=== PATIENT | male | born 1970 | race Hispanic/Latino ===

== ENCOUNTER 2016-06-28 11:03 | Emergency (ER) | payer OTHER ==
[~2016-06-28] VITALS: Ht 170.2 cm; Wt 74.4 kg
[~2016-06-28 11:03] MED LIST: BENTYL10 MG PO; ZOFRAN4 M1 SL
[2016-06-28] MEDS ORDERED: NEXIUM40 M1 PO (12:00)
[2016-06-28] MEDS ORDERED: MONTELUKAST SOD10 M1 PO (12:00)
[2016-06-28] MEDS ORDERED: LORATADINE10 M1 PO (12:00)
--- NOTE | 2016-06-28 12:02 | ED NECK/BACK PAIN COMPLAINT ---
History of Present Illness General Chief Complaint: Neck/Upper Back Pain/Injury Stated Complaint: R FLANK PAIN Source: patient Exam Limitations: no limitations Vital Signs & Intake/Output Vital Signs & Intake/Output Vital Signs Date Time Temp Pulse Resp B/P Pulse O2 O2 Flow FiO2 Ox Delivery Rate 06/28 1339 68 18 116/74 98 Room Air 06/28 1112 98.3 74 20 106/65 98 Room Air Allergies Coded Allergies: NO KNOWN ALLERGIES (09/30/12) Reconcile Medications Cyclobenzaprine HCl 10 MG TABLET 1 TAB PO QPM BACK SPASMS Esomeprazole (Nexium) 40 MG CAPSULE.DR 1 CAP PO DAILY GI (Reported) Loratadine 10 MG TABLET 1 TAB PO DAILY ALLERGIES (Reported) Meloxicam (Mobic) 15 MG TABLET 1 TAB PO DAILY pain Montelukast Sodium 10 MG TABLET 1 TAB PO DAILY ALLERGIES (Reported) Triage Note: PT TO ED C/O R FLANK PAIN X 3 DAYS. C/O BURNING AND URGENCY WITH URINATION. Triage Nurses Notes Reviewed? yes Onset: Abrupt Duration: week(s): (2), constant, continues in ED Timing: recent history HPI: 45-year-old male comes into emergency room with complaints of right upper back pain has been going on for the past week. Patient reports she recently started lifting weights over last couple weeks again. Pain is worse with any type of range of motion. Denies any abdominal pain. Denies any chest pain shortness of breath. Patient also reports some burning with urination and discharge from his penis that is white. Denies any other associated symptoms. (GUSTAVO GILES) Past History Travel History Traveled to [place] past 21 day No Medical History Any Pertinent Medical History? 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 No (GUSTAVO GILES) Review of Systems Review of Systems Constitutional: Reports: no symptoms. Eyes: Reports: no symptoms. Ears, Nose, Throat, Mouth: Reports: no symptoms. Respiratory: Reports: no symptoms. Cardiovascular: Reports: no symptoms. Gastrointestinal/Abdominal: Reports: no symptoms. Musculoskeletal: Reports: see HPI. Skin: Reports: no symptoms. Neurological/Psychological: Reports: no symptoms. All Other Systems: Reviewed and Negative (GUSTAVO GILES) Physical Exam Physical Exam General Appearance: well developed/nourished Head: atraumatic Eyes: Bilateral: normal appearance. Ears, Nose, Throat, Mouth: hearing grossly normal, moist mucous membrane Neck: normal inspection Respiratory: normal breath sounds, no respiratory distress Cardiovascular: regular rate/rhythm Back: normal inspection Extremities: normal range of motion Neurologic/Psych: awake, alert, oriented x 3, normal mood/affect Skin: intact, normal color, warm/dry Diagram Body: 1) Tenderness with palpation (GUSTAVO GILES) Progress Differential Diagnosis: AAA, aortic dissection, C spine injury, carotid dissection, cauda equina syn, herniated disc, myofascial strain, pyelo/UTI, sciatica, spinal cord inj, thoracic outlet syn, T/L spine injury, ureterolithiasis, rib fracture, shingles, kidney stone, Plan of Care: Orders Procedure Date/time Status Add-on Test (ER Only) 06/28 1220 Active CHLAMYDIA-GC DNA PROBE 06/28 1206 Active URINALYSIS 06/28 1203 Complete Laboratory Tests 06/28/16 1206: Urine Color YEL, Urine Clarity CLEAR, Urine pH 6.0, Ur Specific [place] 1.020, Urine Protein NEG, Urine Ketones NEG, Urine Nitrite NEG, Urine Bilirubin NEG, Urine Urobilinogen 0.2, Ur Leukocyte Esterase NEG, Ur Microscopic EXAM NOT REQUIRED, Urine Hemoglobin NEG, Urine Glucose NEG Microbiology 06/28 1206 URINE ROUT: GC DNA Probe - RECD 06/28 120 URINE ROUT: Chlamydia DNA Probe ([facility]IVAN) - RECD Diagnostic Imaging: Viewed by Me: Radiology Read. Discussed w/RAD: Radiology Read. Radiology Impression: EXAM TYPE: RAD - XRY-RIBS UNILATERAL-RIGHT EXAMINATION: XR RIBS, RIGHT CLINICAL INFORMATION: Pain COMPARISON: Chest x-ray dated 05/03/2016 TECHNIQUE: 3 views of the right ribs with PA chest were obtained. FINDINGS: Lungs are clear. No consolidation, pneumothorax, or pleural effusion. The cardiomediastinal silhouette and pulmonary vasculature are normal. Osseous structures are unremarkable. Ribs are intact. No fractures are identified. IMPRESSION: No acute or suspicious osseous abnormality. No acute pulmonary disease. Comments: 06/28/2016 1:22:22 PM Patient clinically looks well. Nontoxic-appearing. In no apparent distress. Patient's pain in the back is reproducible and worse with range of motion making it more consistent with musculoskeletal pain. It is higher up than CVA tenderness. Patient also having some urethral discharge. No suspicion for kidney stone at this time. Patient clinically looks well. Patient treated prophylactically for gonorrhea and chlamydia. Gonorrhea and Chlamydia sent. (CLAUS SNOW,GUSTAVO) Departure Departure Disposition: HOME OR SELF CARE Condition: Stable Clinical Impression Primary Impression: Strain of latissimus dorsi muscle Secondary Impressions: Urethral discharge in male Referrals: REY ASHLEY,LANETTE (PCP/Family) Additional Instructions: Take Shahida and Flexeril as prescribed. Follow-up with your primary care doctor. Return if any concerns worsening symptoms. Please go over all results of today's visit with your primary care doctor. Contact your primary care doctor to let them know you were here in the emergency room. There may be nonspecific findings which may not be related to your visit today here in the emergency room but may require further evaluation and chronic monitoring by your primary care doctor. If you had a laceration today the chance of foreign body always remains. You should follow-up with your primary care doctor for recheck in 3-5 days for a wound check. If you had an x-ray done there is a chance that a fracture could have been missed on initial read and you should follow-up with your primary care doctor for repeat x-rays if symptoms persist. If your blood pressure was elevated here in the emergency room please have rechecked by her primary care doctor within the next 48 hours by your primary care doctor. If you were prescribed a narcotic here in the emergency room or any type of controlled substances you're not allowed to drive while taking this medication or operate any type of heavy machinery. Narcotics can make you feel lightheaded dizziness nausea and can cause constipation. You may need to burr picker a stool softener. Thank you for choosing [facility] emergency room. Please return to the emergency room immediately if you have any other concerns worsening of symptoms. Departure Forms: Customer Survey General Discharge Information Prescriptions: Current Visit Scripts Meloxicam (Mobic) 1 TAB PO DAILY #15 TAB Cyclobenzaprine HCl 1 TAB PO QPM #20 TAB (GUSTAVO GILES) PA/MEDICAL CENTER REPRESENTATIVE Co-Sign Statement Statement: ED Attending supervision documentation- [] I saw and evaluated the patient. I have also reviewed all the pertinent lab results and diagnostic results. I agree with the findings and the plan of care as documented in the PA's/MEDICAL CENTER REPRESENTATIVE's documentation. [x] I have reviewed the ED Record and agree with the PA's/MEDICAL CENTER REPRESENTATIVE's documentation. [] Additions or exceptions (if any) to the PAs/MEDICAL CENTER REPRESENTATIVE's note and plan are summarized below: [] (FCO MONTOYA DO)
--- NOTE | 2016-06-28 13:04 | RADIOLOGY REPORT ---
EXAMINATION: XR RIBS, RIGHT CLINICAL INFORMATION: Pain COMPARISON: Chest x-ray dated 05/03/2016 TECHNIQUE: 3 views of the right ribs with PA chest were obtained. FINDINGS: Lungs are clear. No consolidation, pneumothorax, or pleural effusion. The cardiomediastinal silhouette and pulmonary vasculature are normal. Osseous structures are unremarkable. Ribs are intact. No fractures are identified. IMPRESSION: No acute or suspicious osseous abnormality. No acute pulmonary disease.
[2016-06-28] MEDS ORDERED: MOBIC15 M1 PO (13:09)
[2016-06-28] MEDS ORDERED: CYCLOBENZAPRINE10 M1 PO (13:09)
[2016-06-28 13:39] VITALS: BP 116/74
== END 2016-06-28 13:53 ==
LOC: ERH 11:03
DX: S29.012A Strain of muscle and tendon of back wall of thorax, initial encounter (principal); R36.9 Urethral discharge, unspecified; X50.0XXA Overexertion from strenuous movement or load, initial encounter; Y93.B3 Activity, free weights
CPT/HCPCS: 71100-RT; 81003; 87491; 87591; 96372; J0696

== ENCOUNTER 2017-11-13 15:56 | Emergency (ER) | payer OTHER ==
[~2017-11-13] VITALS: Ht 170.2 cm; Wt 71.2 kg
[~2017-11-13 15:56] MED LIST changes: +CYCLOBENZAPRINE10 M1 PO; +DOLOPHINE HCL10 M1 PO; +LORATADINE10 M1 PO; +MOBIC15 M1 PO; +MONTELUKAST SOD10 M1 PO; +NEXIUM40 M1 PO; +ZOFRAN ODT4 M1 SL
[2017-11-13 16:14] VITALS: BP 122/69
[2017-11-13 16:41] LABS: ABSOLUTE BASOPHIL COUNT 0 /CUMM (0.0-0.2); ABSOLUTE EOSINOPHIL COUNT 0 /CUMM (0.0-0.7); ABSOLUTE LYMPH COUNT 1.2 /CUMM (1.2-3.4); ABSOLUTE MONOCYTE COUNT 0.9 /CUMM (0.10-0.60); BASOPHIL % 0.2 % (0.0-2.0); EOSINOPHIL % 0.3 % (0-5); GRANULOCYTE % 84.8 % (42.2-75.2); HEMATOCRIT 40.8 % (42-52); MEAN CORPUSCULAR HGB 29.4 PG (27.0-31.0); MEAN CORPUSCULAR HGB CONC 33.2 G/DL (33.0-37.0); MEAN CORPUSCULAR VOLUME 88.5 FL (80.0-94.0); MEAN PLATELET VOLUME 7.8 FL (7.4-10.4); PLATELET COUNT 224 /CUMM (130-400); RBC DISTRIBUTION WIDTH 12.6 % (11.5-14.5); RED BLOOD CELL CT 4.61 /CUMM (4.70-6.10)
[2017-11-13 17:06] LABS: WHITE BLOOD CELL COUNT 14.1 /CUMM (4.8-10.8)
--- NOTE | 2017-11-13 17:10 | CT SCAN REPORT ---
EXAMINATION: CT ABDOMEN AND PELVIS WITHOUT CONTRAST CLINICAL INFORMATION: Low back pain radiating to the right groin. COMPARISON: Ultrasound dated 12/16/2015 TECHNIQUE: Multidetector volumetric imaging was performed from the superior aspect of the liver through the pubic symphysis. Sagittal and coronal reformatted images were obtained on the technologist's workstation. DLP: 267.7 mGy-cm FINDINGS: LUNG BASES: The visualized lung bases are unremarkable. LIVER, GALLBLADDER, AND BILIARY TREE: The liver is normal in size, shape, and attenuation. No focal hepatic lesion or biliary ductal dilatation is present. The gallbladder is unremarkable with no evidence of radiopaque gallstones, gallbladder wall thickening, or obvious pericholecystic inflammatory changes. PANCREAS: Unremarkable. SPLEEN: Unremarkable. ADRENAL GLANDS: Unremarkable. KIDNEYS AND URETERS: The kidneys are normal in size, shape, and attenuation. No hydronephrosis, hydroureter, or calculi seen. No perinephric stranding. BLADDER: Unremarkable. GASTROINTESTINAL TRACT: Stomach, small bowel, and colon are normal in caliber. No bowel wall thickening or surrounding inflammatory changes. Appendix is normal. No intraperitoneal free fluid or free air. Moderate to large stool volume is present throughout the colon. ABDOMINAL WALL: No significant hernia is appreciated. LYMPH NODES: Normal. VASCULAR: Unremarkable. PELVIC VISCERA: The prostate and seminal vesicles are unremarkable. OSSEOUS STRUCTURES: Mild degenerative disc disease in the lumbar spine is characterized by endplate osteophytes and mild loss of intervertebral disc height. There are bilateral chronic L5 pars defects. Ankylosis is noted at the sacroiliac joints bilaterally. 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 IMPRESSION: 1. No acute intra-abdominal or intrapelvic abnormalities. No nephrolithiasis or findings of obstructive uropathy. 2. Chronic bilateral L5 pars defects. 3. Mild multilevel degenerative disc disease in lumbar spine
[2017-11-13] MEDS ORDERED: METHADONE10 MG/5 M2 PO (17:26)
--- NOTE | 2017-11-13 17:35 | ED GI/GU/ABDOMINAL COMPLAINT ---
History of Present Illness General Chief Complaint: General Adult Stated Complaint: "I DONT FEEL WELL", MULITPLE COMPLIANTS Source: patient, family Exam Limitations: no limitations Vital Signs & Intake/Output Vital Signs & Intake/Output ED Intake and Output 11/14 0000 11/13 1200 Intake Total 0 Output Total Balance 0 Intake, Oral 0 Patient 157 lb Weight Weight Reported by Patient Measurement Method Allergies Coded Allergies: NO KNOWN ALLERGIES (09/30/12) Reconcile Medications Methadone HCl 10 MG/5 ML SOLUTION 80 MG PO DAILY MENTAL HEALTH (Reported) Naproxen (Naprosyn) 500 MG TABLET 1 TAB PO BID PRN PAIN/FEVER Triage Note: 47 Y/O MALE C/O FEVERS SINCE THIS AM AND LOWER BACK PAIN (ONSET THIS MORNING). PT DENIES ABDOMINAL PAIN BUT STATES SOME PAIN IN R LOWER GROIN. PT REPORTS "FEELING A KNOT" IN R GROIN, DENIES NOTING REDNESS. FAMILY MEMBER GAVE 1000MG TYLENOL AT 1345 WITH SOME RELIEF, 99.2 IN TRIAGE. PT ALSO REPORTS "BURNING" WITH URINATION. EVALD BY GWENDOLYN REID IN TRIAGE Triage Nurses Notes Reviewed? yes Onset: Abrupt Duration: day(s): (1), constant, continues in ED Timing: single episode today Quality/Severity: cramping, dullness Severity Numbers: 4 Location: generalized abdomen Radiation: back, groin Activities at Onset: none Prior Abdominal Problems: none No Modifying Factors: none HPI: 47-year-old male history of migraine headaches, substance abuse, on methadone maintenance presents for evaluation of fatigue, weakness, body aches, back pain, subjective fever and abdominal pain. Patient reports symptoms started today when he woke up and been persistent. The pain is located diffusely in his abdomen described as cramping and dullness. He reports associated decreased appetite and nausea but no vomiting no diarrhea no chest pain no shortness of breath. He has not taken a measured temperature. No rashes. He does report some intermittent burning with urination but no penile discharge. No frequency or urgency. (Gabriel SNOW,Shawn) Past History Travel History Traveled to [place] past 21 day No Medical History Any Pertinent Medical History? 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 No (Shawn Verdugo) Review of Systems Review of Systems Constitutional: Reports: see HPI, malaise, weakness. EENTM: Reports: no symptoms. Respiratory: Reports: no symptoms. Cardiovascular: Reports: no symptoms. GI: Reports: see HPI, abdominal pain. Genitourinary: Reports: see HPI, dysuria. Musculoskeletal: Reports: see HPI, back pain, muscle pain, muscle stiffness. Skin: Reports: no symptoms. Neurological/Psychological: Reports: no symptoms. Hematologic/Endocrine: Reports: no symptoms. Immunologic/Allergic: Reports: no symptoms. All Other Systems: Reviewed and Negative (Shawn Verdugo) Physical Exam Physical Exam General Appearance: well developed/nourished, no apparent distress, alert, awake Head: atraumatic, normal appearance Eyes: Bilateral: normal appearance, PERRL, EOMI. Ears, Nose, Throat, Mouth: hearing grossly normal, moist mucous membrane Neck: normal inspection, supple, full range of motion Respiratory: normal breath sounds, chest non-tender, no respiratory distress, lungs clear Cardiovascular: regular rate/rhythm, normal peripheral pulses Peripheral Pulses: 2+ radial (R), 2+ radial (L) Gastrointestinal: soft, tenderness (MILD DIFFUSE ) Male Genitals: normal genitalia Back: normal inspection, normal range of motion, no vertebral tenderness, LUMBAR PARASPINOUS M\\MUSCLE TEDNERENSS BILATERALY. NO MIDLINE PAIN NO STEP OFFS OR DEFORMITIES. Extremities: normal range of motion Neurologic/Psych: no motor/sensory deficits, awake, alert, oriented x 3, normal gait Skin: intact, normal color, warm/dry Core Measures ACS in differential dx? No Sepsis Present: No Sepsis Focused Exam Completed? No (Shawn Verdugo) Progress Differential Diagnosis: appendicitis, bowel obstruction, cholecystitis, diverticulitis, gastritis, prostatitis, pyelonephritis, STD, ureterolithiasis, urinary retention, urethritis, UTI/pyelo, viral syndrome, dehydration Plan of Care: Orders Procedure Date/time Status Add-on Test (ER Only) 11/13 1736 Active CULTURE,URINE 11/13 1649 Active CHLAMYDIA-GC DNA PROBE 11/13 1649 Active Patient is here with multiple complaints including subjective fever malaise weakness fatigue abdominal pain and back pain. On exam his vital signs are stable. He has mild diffuse abdominal tenderness and lumbar paraspinal tenderness. Labs CT scan ordered urinalysis, gonorrhea chlamydia ordered. Work showing a white blood cell count of 14,000 otherwise no abnormal findings. Urine is not showing signs of infection. Gonorrhea chlamydia testing is pending. CT scan of the abdomen and pelvis shows some degenerative changes of the lumbar spine without acute findings. Patient was medicated with fluids and Toradol and is feeling much better. Discussed with patient about empiric treatment for gonorrhea chlamydia as he is reporting dysuria. Patient is sexually active with his and no other partners no history of STDs. He wants to hold off on it. Treatment for now until results are back. Advised patient to rest drink plenty of fluids continue Tylenol and ibuprofen for body aches and subjective fever. Follow-up with primary care doctor the next few days. Discussed return precautions in detail avoid sex until infection status is known. Patient agrees the plan Diagnostic Imaging: Viewed by Me: CT Scan. Discussed w/RAD: CT Scan. Radiology Impression: PATIENT: EMERITA GRIFFIN PRESENT AGE: 47 PATIENT ACCOUNT NO: [id number] : 68 LOCATION: [facility] ([place]) ORDERING PHYSICIAN: Shawn SNOW SERVICE DATE: 11/13/17 EXAM TYPE: CAT - CT ABD & PELVIS W/O IV CONTRAS EXAMINATION: CT ABDOMEN AND PELVIS WITHOUT CONTRAST CLINICAL INFORMATION: Low back pain radiating to the right groin. COMPARISON: Ultrasound dated 12/16/2015 TECHNIQUE: Multidetector volumetric imaging was performed from the superior aspect of the liver through the pubic symphysis. Sagittal and coronal reformatted images were obtained on the technologist's workstation. DLP: 267.7 mGy-cm FINDINGS: LUNG BASES: The visualized lung bases are unremarkable. LIVER, GALLBLADDER, AND BILIARY TREE: The liver is normal in size, shape, and attenuation. No focal hepatic lesion or biliary ductal dilatation is present. The gallbladder is unremarkable with no evidence of radiopaque gallstones, gallbladder wall thickening, or obvious pericholecystic inflammatory changes. PANCREAS: Unremarkable. SPLEEN: Unremarkable. ADRENAL GLANDS: Unremarkable. KIDNEYS AND URETERS: The kidneys are normal in size, shape , and attenuation. No hydronephrosis, hydroureter, or calculi seen. No perinephric stranding. BLADDER: Unremarkable. GASTROINTESTINAL TRACT: Stomach, small bowel, and colon are normal in caliber. No bowel wall thickening or surrounding inflammatory changes. Appendix is normal. No intraperitoneal free fluid or free air. Moderate to large stool volume is present throughout the colon. ABDOMINAL WALL: No significant hernia is appreciated. LYMPH NODES: Normal. VASCULAR: Unremarkable. PELVIC VISCERA: The prostate and seminal vesicles are unremarkable. OSSEOUS STRUCTURES: Mild degenerative disc disease in the lumbar spine is characterized by endplate osteophytes and mild loss of intervertebral disc height. There are bilateral chronic L5 pars defects. Ankylosis is noted at the sacroiliac joints bilaterally. 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 IMPRESSION: 1. No acute intra-abdominal or intrapelvic abnormalities. No nephrolithiasis or findings of obstructive uropathy. 2. Chronic bilateral L5 pars defects. 3. Mild multilevel degenerative disc disease in lumbar spine DICTATED BY: Edgar Torres MD DATE/TIME DICTATED:11/13/171699 FAMILY REUNIFICATION SPECIALIST:MONICA DATE/TIME TRANSCRIBED:11/13/171699 CONFIDENTIAL, DO NOT COPY WITHOUT APPROPRIATE AUTHORIZATION. <Electronically signed in Other Vendor System> SIGNED BY: Edgar Torres MD 11/13/171709 Initial ED EKG: none (Shawn Verdugo) Departure Departure Disposition: HOME OR SELF CARE Condition: Stable Clinical Impression Primary Impression: Low back pain Qualifiers: Chronicity: acute Back pain laterality: right Sciatica presence: without sciatica Qualified Code: M54.5 - Low back pain Referrals: Warner ASHLEY,Arvind Cooper MD,Atif Reyes MD,Aguila Tanner Patient Has No Primary Care Dr (PCP/Family) Additional Instructions: REST AVOID EXCESSIVE PHYSICAL ACTIVITY HEAVY LIFTING OR BENDING. NAPROXEN NEEDED FOR PAIN OR FEVER. MAKE A FOLLOW UP WITH PROVIDED PRIMARY CARE DOCOTOR TO REIVEW ALL RESULTS OF TODAYS VISIT. RETURN WITH ANY CONCERNS. Departure Forms: Customer Survey General Discharge Information Prescriptions: Current Visit Scripts Naproxen (Naprosyn) 1 TAB PO BID PRN PAIN/FEVER #30 TAB (Shawn Verdugo) PA/DETENTION SERGEANT Co-Sign Statement Statement: ED Attending supervision documentation- I saw and evaluated the patient. I have also reviewed all the pertinent lab results and diagnostic results. I agree with the findings and the plan of care as documented in the PA's/DETENTION SERGEANT's documentation. I have reviewed the ED Record and agree with the PA's/DETENTION SERGEANT's documentation. [] Additions or exceptions (if any) to the PAs/DETENTION SERGEANT's note and plan are summarized below: [] (Augustine ASHLEY,Chuck)
[2017-11-13] MEDS ORDERED: NAPROSYN500 M1 PO (17:38)
== END 2017-11-13 17:46 ==
LOC: ERH 15:56
PROVIDERS: Physician Assistant Medical
DX: M54.5 Low back pain (principal); R53.1 Weakness; R50.9 Fever, unspecified; R10.9 Unspecified abdominal pain; R30.0 Dysuria
CPT/HCPCS: 74176; 81001; 87086; 87491; 87591; 96372; J1885